=== PATIENT | female | born 1945 | race Caucasian/White ===

== ENCOUNTER 2016-09-16 17:54 | Emergency (ER) | payer MEDICARE, OTHER ==
[~2016-09-16] VITALS: Ht 147.3 cm; Wt 62.1 kg
--- NOTE | ~2016-09-16 | CR282 ---
[facility]. [facility] A Service of [facility] & [facility] RADIOLOGY TEXT RESULTS PATIENT: TRINIDAD JEFFERS LOCATION: SED : 49 UNIT #: [id number] AGE: [address]: Claudio Dallas MD SEX: F ORDER DR: [id number] [place] [id number] E MR#: [id number] Acc #: [id number] NAME: TRINIDAD JEFFERS : 1945 SEX: F STUDY DATE/TIME: UNIT: SED ROOM: STUDY DESCRIPTION: CR Wrist Min 3 View Rt Attending Physician: Claudio Dallas M.D. Ordering Physician: Physician Non-Staff Primary Care Physician: No Primary Care Physician MEDICAL IMAGING REPORT This report is preliminary unless electronic signature is present. EXAM Right wrist 3 views 09/16/2016 at 18:52 hours HISTORY Patient awoke with a swollen painful wrist with throbbing pain today. No known injury. COMPARISON None. FINDINGS AP, lateral and oblique views suggest osteopenia. There is no fracture of the distal radius or ulna. Carpal bones are intact. There is trace degenerative spurring. IMPRESSION Osteopenia with no fracture or erosive change. Dictated by... Grazyna Dinh M.D. THIS IS AN ELECTRONICALLY VERIFIED REPORT Grazyna Dinh M.D. at 09/17/2016 9:27 AM HEATHER/jaqueline TD: 09/16/2016 23:41 JOB #: [id number] MEDICAL IMAGING REPORT Page 1 of 1
[~2016-09-16 17:54] MED LIST: ADVAIR 230-21 INH; ADVAIR 2501 DISK W/D PO; ADVAIR 5001 DISK W/D PO; ADVAIR HFA 230-28 GM IH; ALBUTEROL17 GM INH; ALL DAY ALLERGY10 M1 PO; ALLEGRA ALLERG180 MG PO; ALPRAZOLAM PO; AMBIEN PO; AMLODIPINE BESYL5 MG PO; ANEXSIA 7.5/3251 TA1 PO; ASPIRIN PO; ASPIRIN81 M2 PO; ASPIRIN81 MG PO; ATIVAN PO; BACLOFEN10 MG PO; BENADRYL; BUMETANIDE0.5 MG PO; CELEXA20 MG PO; CEPHALEXIN500 M1 PO; CIPRO PO; CITALOPRAM HBR10 MG PO; DIOVAN80 M1 PO; DUONEB 2.5-0.5 M3 ML NEB; FAMOTIDINE PO; FLEXERIL PO; FLONASE16 GM; GABAPENTIN600 MG PO; GABAPENTIN800 MG PO; GLUCOPHAGE XR750 MG PO; HCTZ PO; HYDROCHLOROTHIA25 MG PO; HYDROCODONE-APA1 T45 PO; HYDROCODONE/APA1 T16 PO; HYDROXYZINE HCL10 MG PO; IMDUR PO; IMDUR-ER30 M1 PO; IMDUR-ER30 M2 PO; IMDUR-ER60 M1 PO; IMDUR-ER60 M2 PO; IMDUR-ER60 MG DOB; IPRATR-ALBUTEROL3 ML INH; IPRATROPIUM; IPRATROPIUM BROMIDE INH; K-DUR10 MEQ PO; LASIX PO; LASIX20 MG PO; LESCOL PO; LEVAQUIN750 MG PO; LIDODERM30 EA; LISINOPRIL PO; LORTAB 10-3251 EACH PO; LOSARTAN POTASS50 MG PO; MECLIZINE HCL25 M2; MEDI-MECLIZINE25 M1 PO; METFORMIN HCL750 MG PO; MONTELUKAST SOD10 MG PO; MUCINEX DM1 TAB.SR . PO; MULTI VITAMIN1 EACH PO; MULTIVITAMIN1 UDCAP PO; NEURONTIN PO; NIACIN PO; NIACIN250 M1 PO; NIACIN500 M1 PO; NIACIN500 M2 PO; NICOTINE TRANSD21 MG EXT; NITROSTAT0.4 MG SL; NORCO 7.5-3251 EACH; NORVASC PO; OMEPRAZOLE20 M2 PO; PERCOCET5/325 PO; PHENERGAN PO; PHENERGAN25 M1; PHENERGAN25 M1 PO; PLAVIX PO; POTASSIUM CHLO10 ME1 PO; POTASSIUM CHLO10 MEQ PO; POTASSIUM99 M1 PO; PRAVACHOL PO; PRAVASTATIN SOD40 MG PO; PREDNISONE; PREDNISONE PO; PREDNISONE TAPER; PREDNISONE10 MG/DOSE PO; PREDNISONE50 MG; PRILOSEC PO; PRILOSEC20 MG PO; PROTONIX PO; PROVENTIL INH0.5 ML INH; ROBITUSSIN COU118 M2 PO; ROBITUSSIN-DM118 M1 PO; SINGULAIR PO; THEO-24200 MG PO; THEO-DUR300 MG PO; THEOPHYLLIN PO; VANTIN200 MG PO; VICODIN 5/500 T1 TAB PO; VITAMIN D1000 UNI1 PO; VITAMIN D1000 UNIT PO; VITAMIN D2000 UNIT PO; ZITHROMAX PO; ZOCOR PO; ZOLPIDEM TARTRAT5 M1 PO; ZOLPIDEM TARTRAT5 MG PO; ZYRTEC10 M2 PO; [UNRECOGNIZED DRUG - OTHER]
[2016-09-16 20:26] LABS: BASOPHIL# 0.1 X10e3 (0-0.3); BASOPHIL% 0.8 % (0-2.5); EOSINOPHIL% 0.2 % (0.0-7.0); HEMATOCRIT 41.1 % (35.0-45.0); HEMOGLOBIN 14.3 gm/dL (12.0-16.0); LYMPHOCYTE# 1.3 X10e3 (1.0-3.5); LYMPHOCYTE% 8.8 % (17.0-45.0); MEAN CELL VOLUME 91.3 FL (83-96); MEAN CORPUSCULAR HEMOGLOBIN 31.8 PG (28-34); MEAN CORPUSCULAR HGB CONC 34.8 g/dL (30-36); MEAN PLATELET VOLUME 8.5 FL (6.5-11.5); MONOCYTE# 1.9 X10e3 (0-1.0); MONOCYTE% 12.4 % (3.0-12.0); NEUTROPHIL# 11.8 X10e3 (1.5-7.1); NEUTROPHIL% 77.8 % (40-75); PLATELET COUNT 239 X10e3 (140-420); RED CELL DISTRIBUTION WIDTH 13.8 % (11.0-15.5); WHITE BLOOD COUNT 15.2 X10e3 (4.0-10.5)
[2016-09-16 20:27] LABS: DIFF IND NO
[2016-09-16 20:53] LABS: BUN/CREATININE RATIO 34.28; CALCIUM SERUM 9.2 mg/dL (8.4-10.2); CREATININE SERUM 0.7 mg/dL (0.6-1.4); GLOM FILT RATE Estimated 88.4 mL/min (>60); POTASSIUM 3.6 mmol/L (3.5-5.1)
[2016-09-16 21:31] LABS: SEDIMENTATION RATE-SW ONLY 39 mm/hr (0-40)
== END 2016-09-17 00:54 | disposition home or self-care (01) ==
LOC: SED 17:54
PROVIDERS: Emergency Medicine; Physician Assistant
DX: L03.113 Cellulitis of right upper limb (principal); J44.9 Chronic obstructive pulmonary disease, unspecified; I10 Essential (primary) hypertension; E11.9 Type 2 diabetes mellitus without complications; Z91.041 Radiographic dye allergy status; Z88.8 Allergy status to other drugs, medicaments and biological substances; Z79.899 Other long term (current) drug therapy
CPT/HCPCS: 29125; 36415; 73110; 80048; 84550; 85025; 85651; 86140; 96365; 96375; 99284; J1885; J3370